=== PATIENT | female | born 1950 | race Caucasian/White ===

== ENCOUNTER 2020-08-05 10:33 | Emergency (ER) | payer MEDICARE ==
[~2020-08-05] VITALS: Ht 167.6 cm; Wt 93.0 kg
--- NOTE | 2020-08-05 10:59 | PHYS DOC ---
Past History Past Medical History: GERD, Hypertension Past Surgical History: Hysterectomy, Other Additional Past Surgical Histo: GI, shoulders. eyes, Bladder. Alcohol Use: None General Adult EDM: Chief Complaint: FACE PAIN HPI: HPI: 70-year-old female presents with nose pain. The patient was at her '[place] grave site [place] val[place] when she slipped on the wet grass and fell onto her face. The only thing that hurts is her nose. She had a bloody nose but it has stopped prior to arrival. She denies loss of consciousness. She does not have a headache or neck pain. She does not state any other injuries. Review of Systems: Review of Systems: Constitutional: Denies fever or chills Eyes: Denies change in visual acuity HENT: Nose abrasion, trauma Respiratory: Denies cough or shortness of breath Cardiovascular: Denies chest pain or edema GI: Denies abdominal pain, nausea, vomiting, bloody stools or diarrhea : Denies dysuria Musculoskeletal: Denies back pain or joint pain Integument: Denies rash Neurologic: Denies headache, focal weakness or sensory changes Endocrine: Denies polyuria or polydipsia Lymphatic: Denies swollen glands Psychiatric: Denies depression or anxiety Allergies: Allergies: Allergies Coded Allergies Type Severity Reaction Last Updated Verified iodine Allergy Unknown 08/05/20 Yes Uncoded Allergies Type Severity Reaction Last Updated Verified cloraprep Allergy Unknown 08/05/20 Physical Exam: PE: Constitutional: Well developed, well nourished, obese, no acute distress, non- toxic appearance. [] HENT: Normocephalic, atraumatic, bilateral external ears normal, oropharynx moist, no oral exudates, nose swollen with ecchymosis and small abrasion. [] Eyes: PERRLA, EOMI, conjunctiva normal, no discharge. [] Neck: Normal range of motion, no tenderness, supple, no stridor. [] Cardiovascular: Heart rate regular rhythm, no murmur [] Lungs & Thorax: Bilateral breath sounds clear to auscultation [] Abdomen: Bowel sounds normal, soft, no tenderness, no masses, no pulsatile masses. [] Skin: Warm, dry, no erythema, no rash. [] Back: No tenderness, no CVA tenderness. [] Extremities: No tenderness, no cyanosis, no clubbing, ROM intact, no edema. [] Neurologic: Alert and oriented X 3, normal motor function, normal sensory function, no focal deficits noted. [] Psychologic: Affect normal, judgement normal, mood normal. [] Current Patient Data: Vital Signs: Vital Signs Date Time Temp Pulse Resp B/P (MAP) Pulse Ox O2 Delivery O2 Flow Rate FiO2 08/05/20 10:45 98.2 86 16 179/77 (111) 96 Room Air EKG: EKG: [] Radiology/Procedures: Radiology/Procedures: [] Impressions: Facial bone series to include nasal radiographs 08/05/2020 CLINICAL HISTORY: Fall with injury to the face/nose. PA, Sanders, and lateral digital radiographs of the skull/facial bones were obtained. AP and lateral digital radiograph of the nasal bone was obtained. No facial bone fracture is seen. The orbits are intact. No nasal bone fracture is identified. The maxillary spine appears intact. The paranasal sinuses are well aerated and are clear. No air-fluid level is seen. IMPRESSION: No facial bone fracture is seen. Electronically signed by: Dorian Rodríguez MD (08/05/2020 11:17 AM) [id number] DICTATED AND SIGNED BY: DORIAN RODRÍGUEZ MD DATE: 08/05/20 1114 CC: BRITT BARTH DO ~MTH0 0 Heart Score: C/O Chest Pain: N/A Risk Factors: Risk Factors: DM, Current or recent (<one month) smoker, HTN, HLP, family history of CAD, obesity. Risk Scores: Score 0 - 3: 2.5% MACE over next 6 weeks - Discharge Home Score 4 - 6: 20.3% MACE over next 6 weeks - Admit for Clinical Observation Score 7 - 10: 72.7% MACE over next 6 weeks - Early Invasive Strategies Course & Med Decision Making: Course & Med Decision Making Pertinent Labs and Imaging studies reviewed. (See chart for details) Patient's x-rays are negative for fracture. She does has a nose contusion. She is stable for discharge at this time. [] Dragon Disclaimer: Dragon Disclaimer: This electronic medical record was generated, in whole or in part, using a voice recognition dictation system. Departure Departure: Impression: Primary Impression: Contusion of nose, initial encounter Additional Impression: Fall from slip, trip, or stumble Disposition: 01 HOME / SELF CARE / HOMELESS Condition: STABLE Patient Instructions: Facial or Scalp Contusion, [id number] BRTIT BARTH DO August 05, 2020 10:59
--- NOTE | 2020-08-05 11:20 | RAD ---
Facial bone series to include nasal radiographs 08/05/2020 CLINICAL HISTORY: Fall with injury to the face/nose. PA, Sanders, and lateral digital radiographs of the skull/facial bones were obtained. AP and lateral d igital radiograph of the nasal bone was obtained. No facial bone fracture is seen. The orbits are intact. No nasal bone fracture is identified. The max illary spine appears intact. The paranasal sinuses are well aerated and are clear. No air-fluid level is seen. IMPRESSION: No facial bone fracture is seen. Electronically signed by: Dorian Rodríguez MD (08/05/2020 11:17 AM) [id number]
[2020-08-05 11:38] VITALS: BP 135/64
== END 2020-08-05 11:39 | disposition home or self-care (01) ==
LOC: ER 10:33
DX: S00.33XA Contusion of nose, initial encounter (principal); K21.9 Gastro-esophageal reflux disease without esophagitis; I10 Essential (primary) hypertension; Z90.710 Acquired absence of both cervix and uterus; W18.00XA Striking against unspecified object with subsequent fall, initial encounter; Y93.89 Activity, other specified; Y92.89 Other specified places as the place of occurrence of the external cause; Y99.8 Other external cause status
CPT/HCPCS: 70150; 99283-25